=== PATIENT | male | born 1965 | race African-American/Black ===

== ENCOUNTER 2017-01-24 15:56 | Emergency (ER) | payer OTHER ==
--- NOTE | ~2017-01-24 | CR142 ---
[facility] A Service of [facility] & [facility] RADIOLOGY TEXT RESULTS PATIENT: FARIBA ARAUZ LOCATION: CFT[facility] : 63 UNIT #: [id number] AGE: [address]: MABLE GARNER SEX: M ORDER DR: [id number] [facility] [address]. [place], [place] [address] [id number] MR#: [id number] Acc #: [id number] NAME: FARIBA ARAUZ : 1965 SEX: M STUDY DATE/TIME: 01/24/2017 15:31 UNIT: [facility] ROOM: STUDY DESCRIPTION: CR Hand Min 3 Views Rt Attending Physician: Mable Garner Aprn [facility] Ordering Physician: Rodney Guzman M.D. Primary Care Physician: [facility] MED[facility] IMAGING REPORT This report is preliminary unless electronic signature is present EXAM Right hand, 3 views. HISTORY Laceration, 2nd digit today. FINDINGS 3 views of the right hand demonstrate soft tissue injury along the radial margin of the 2nd metacarpal head. Satisfactory bone alignment. No fracture or opaque soft tissue foreign body. 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 IMPRESSION 1. No fracture or opaque soft tissue foreign body. 2. Soft tissue laceration along the radial margin of the 2nd metacarpal head. 3. 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 Dictated by... Jamaal Michele M.D. THIS IS AN ELECTRONICALLY VERIFIED REPORT Jamaal Michele M.D. at 01/24/2017 11:25 PM MANI/niko TD: 01/24/2017 16:14 JOB #: [id number] MEDICAL IMAGING REPORT Page 1 of 1 COPY
== END 2017-01-24 17:00 | disposition home or self-care (01) ==
LOC: CFTX 15:56
DX: S61.411A Laceration without foreign body of right hand, initial encounter (principal); Z23 Encounter for immunization; I10 Essential (primary) hypertension; F17.210 Nicotine dependence, cigarettes, uncomplicated; W25.XXXA Contact with sharp glass, initial encounter; Y92.9 Unspecified place or not applicable
CPT/HCPCS: 12001; 73130; 90471; 90715; 99283